=== PATIENT | female | born 1955 | race Caucasian/White ===

== ENCOUNTER → 2017-05-09 | Day surgery (SDC) | payer OTHER ==
[~2017-05-09] VITALS: Ht 160.7 cm; Wt 52.6 kg
[~2017-05-09] MED LIST: 0.9% Sodium Chloride 1,000 ML IV PRN; CA C1TAB83 PO; FOLI1TAB18 PO; GABA-500 PO; LEVO100T6 PO; LOSA25TA21 PO; LOVA20TA PO; Sodium Chloride LOK Flush 10 mL Syringe IV PRN; fentaNYL-PF 50 mCg/mL 2 mL Inj IVPUSH PRN
[2017-05-09 10:05] VITALS: BP 139/80; PULSE 77; RESP 16; O2SAT 98
[2017-05-09 10:52] VITALS: BP 116/67; PULSE 83; RESP 16; O2SAT 100
[2017-05-09 11:04] VITALS: BP 119/67; PULSE 82; RESP 15; O2SAT 96
--- NOTE | 2017-05-09 11:58 | ENDO ---
[address] [address] ENDOSCOPY PROCEDURE PATIENT: DREAD SEBASTIAN : 1955 MR#: [id number] ADMIT: 05/09/2017 JOB ID: [id number] DATE: 05/09/2017 TYPE OF PROCEDURE: Colonoscopy. INDICATION: Patient with a family history of colon cancer. Patient's ASA classification is 1. Mallampati score is 1. MEDICATIONS: 1. Versed 5 mg. 2. Fentanyl 100 mcg. INSTRUMENT USED: PCF-H180AL PREPARATION QUALITY: Good. PROCEDURE DETAILS: After informed consent was obtained, the patient was brought to the GI suite, where he was placed on oxygen via nasal cannula and monitored with continuous pulse oximeter, telemetry, and blood pressure monitoring. A time-out was performed. Then, she was placed in a left lateral decubitus position and medications were administered for sedation. Digital rectal exam was performed, which was unremarkable. The colonoscope was then inserted into the rectum and advanced under direct visualization to the cecum, which was identified by the presence of the ileocecal valve and appendiceal orifice. Once the cecum was reached, the colonoscope was withdrawn back into the rectum. Mucosa and lumen were examined. In the rectum, retroflexion was performed. Following retroflexion, remaining air in the rectum was suctioned and procedure was completed. FINDINGS: Normal exam from rectum to cecum. IMPRESSION: Normal colonoscopy. RECOMMENDATIONS: Repeat colonoscopy in five years, sooner if symptoms should dictate. COMPLICATIONS: None. ESTIMATED BLOOD LOSS: Zero.
== END | disposition home or self-care (01) ==
LOC: END 01:27
PROVIDERS: ATTEND Internal Medicine Gastroenterology
DX: Z12.11 Encounter for screening for malignant neoplasm of colon (principal); Z86.010 Personal history of colon polyps; Z80.0 Family history of malignant neoplasm of digestive organs; I10 Essential (primary) hypertension; E78.5 Hyperlipidemia, unspecified; M19.90 Unspecified osteoarthritis, unspecified site; E03.9 Hypothyroidism, unspecified; Z85.828 Personal history of other malignant neoplasm of skin
CPT/HCPCS: 99153; G0105; G0500; J2250; J3010; J7030